=== PATIENT | male | born 1935 | race Caucasian/White ===

== ENCOUNTER 2016-11-12 02:39 | Emergency (ER) | payer MEDICARE, BC ==
--- NOTE | 2016-11-12 03:30 | ED.PDOC ---
History of Present Illness - General Chief Complaint: Dental/Mouth Stated Complaint: Tooth pain Time Seen by Provider: 11/12/16 03:24 Source: patient, RN notes reviewed, Vital Signs reviewed Exam Limitations: no limitations - History of Present Illness Initial Comments: This 80 y/o male has had tooth pain for the past 4 days. The pain initially was just irritating, however, it has become very painful, even to touch. He saw the dentist a couple of months ago and didn't have any problems at the time. The pain radiates up toward his ear. Timing/Duration: other - 4 days Severity: severe Improving Factors: nothing Worsening Factors: eating, other - touch Associated Symptoms: denies symptoms Allergies/Adverse Reactions: Allergies Iodine Allergy (Verified 08/07/16 19:29) Hydrocodone [From Codone] Adverse Reaction (Verified 08/07/16 19:29) Penicillin G Adverse Reaction (Verified 08/07/16 19:29) Home Medications: Ambulatory Orders Pantoprazole Sodium [Protonix] 40 mg PO DAILY 08/07/16 Clindamycin HCl 300 mg PO TID #21 cap 11/12/16 Gabapentin 300 mg PO TID PRN #15 cap 11/12/16 Review of Systems - Review of Systems Constitutional: States: no symptoms reported EENTM: States: other - tooth pain Respiratory: States: no symptoms reported Cardiology: States: no symptoms reported Gastrointestinal/Abdominal: States: no symptoms reported Genitourinary: States: no symptoms reported Musculoskeletal: States: no symptoms reported Skin: States: no symptoms reported Neurological: States: no symptoms reported Endocrine: States: no symptoms reported Hematologic/Lymphatic: States: no symptoms reported Past Medical History (General) - Patient Medical History Hx Seizures: No Hx Stroke: No Hx Dementia: No Hx Asthma: No Hx of COPD: No Hx Cardiac Disorders: No Hx Congestive Heart Failure: No Hx Pacemaker: No Hx Hypertension: No Hx Thyroid Disease: No Hx Diabetes: No Hx Gastroesophageal Reflux: Yes Hx Renal Disease: No Hx Cancer: No Hx of HIV: No Hx Hepatitis C: No Hx MRSA: No - Vaccination History Hx Tetanus, Diphtheria Vaccination: No Hx Influenza Vaccination: Yes Hx Pneumococcal Vaccination: Yes - Social History Hx Tobacco Use: No Hx Chewing Tobacco Use: No Hx Alcohol Use: Yes Hx Substance Use: No Hx Substance Use Treatment: No Hx Depression: No Hx Physical Abuse: No Hx Emotional Abuse: No Hx Suspected Abuse: No Family Medical History - Family History Mother Family History: Unknown Physical Exam - Physical Exam General Appearance: Alert, Other - Mild distress Eye Exam: bilateral normal Ears, Nose, Throat: normal ENT inspection, other - Tenderness to palpation of tooth #30. No caries noted. No gingival erythema. Neck: non-tender Respiratory: lungs clear, normal breath sounds, no respiratory distress, no accessory muscle use Cardiovascular/Chest: regular rate, rhythm, no edema, no gallop, no murmur Gastrointestinal/Abdominal: normal bowel sounds, non tender, soft, no organomegaly Extremity: normal range of motion Skin Exam: normal color, warm/dry Departure - Departure Clinical Impression: Acute pulpitis Time of Disposition: 03:34 Disposition: Discharge to Home or Self Care Condition: Excellent Departure Forms: ED Discharge - Pt. Copy, Patient Portal Self Enrollment Prescriptions: Clindamycin HCl 300 mg PO TID #21 cap Gabapentin 300 mg PO TID PRN #15 cap PRN Reason: Pain Home Medications: Ambulatory Orders Pantoprazole Sodium [Protonix] 40 mg PO DAILY 08/07/16 Clindamycin HCl 300 mg PO TID #21 cap 11/12/16 Gabapentin 300 mg PO TID PRN #15 cap 11/12/16 Additional Instructions: Follow up with dentist SHAKA.
[2016-11-12 03:39] VITALS: TEMP 97.6; O2SAT 96
[2016-11-12] MEDS ORDERED: CLINDAMYCIN HCL CAP 150 MG CAP PO ONE (03:40)
[2016-11-12] MEDS ORDERED: GABAPENTIN 300 MG CAP PO ONE (03:41)
[2016-11-12 03:53] VITALS: BP 178/90
== END 2016-11-12 03:53 | disposition home or self-care (01) ==
LOC: ER 02:39
DX: K04.01 Reversible pulpitis (principal); K21.9 Gastro-esophageal reflux disease without esophagitis; Z88.0 Allergy status to penicillin; Z88.6 Allergy status to analgesic agent; Z88.8 Allergy status to other drugs, medicaments and biological substances

== ENCOUNTER → 2017-06-26 | Outpatient (CLI) | payer MEDICARE, BC ==
--- NOTE | 2017-06-26 09:49 | RAD ---
EXAM DESCRIPTION: Hip Bilateral (accession [id number]), Pelvis (accession [id number]) CLINICAL HISTORY: 81 years,Male,HIP PAIN COMPARISON: None FINDINGS: The right and left hip demonstrates no fractures, dislocations, or other bony abnormalities. The joint spaces quite unremarkable for age.. The included pelvis is unremarkable. There is a slight bump at the femoral head neck junctions bilaterally which can lead to femoral acetabular impingement but that usually more of concern in the much younger population. IMPRESSION: Unremarkable pelvis and hips especially for the patient's age. Electronically signed by: Deon Hernández MD 06/26/2017 9:48 AM CDT
--- NOTE | 2017-06-26 09:49 | RAD ---
EXAM DESCRIPTION: Hip Bilateral (accession [id number]), Pelvis (accession [id number]) CLINICAL HISTORY: 81 years,Male,HIP PAIN COMPARISON: None FINDINGS: The right and left hip demonstrates no fractures, dislocations, or other bony abnormalities. The joint spaces quite unremarkable for age.. The included pelvis is unremarkable. There is a slight bump at the femoral head neck junctions bilaterally which can lead to femoral acetabular impingement but that usually more of concern in the much younger population. IMPRESSION: Unremarkable pelvis and hips especially for the patient's age. Electronically signed by: Deon Hernández MD 06/26/2017 9:48 AM CDT
== END | disposition home or self-care (01) ==
LOC: RAD 07:26
PROVIDERS: ATTEND Orthopaedic Surgery
DX: M25.551 Pain in right hip (principal); M25.552 Pain in left hip

== ENCOUNTER → 2017-08-13 | Outpatient (CLI) | payer MEDICARE, BC | END | disposition home or self-care (01) | LOC: GMAH 16:53 | PROVIDERS: ATTEND Family Medicine | DX: M54.5 Low back pain (principal) ==

== ENCOUNTER → 2017-08-19 | Outpatient (CLI) | payer MEDICARE, BC ==
--- NOTE | 2017-08-20 11:00 | MRI ---
EXAM DESCRIPTION: Lumbar Spine w/o Contrast CLINICAL HISTORY: 81 years, Male, RADICULOPATHY bilateral hip pain more in the right COMPARISON: FINDINGS: Sagittal and axial sequences. Bone marrow is normal signal characteristics. Conus terminates at which shall be labeled L2. With this numbering S1 is considered transitional. If any procedures contemplated, please confirm numbering with plain films. Benign-appearing left renal cysts noted. Sagittal sequences show a minimal bulge at L1-2. At L2-3, slight narrowing with bulge and facet degenerative change. Slight left foraminal narrowing. At L3-4 mild bulging disc and facet degenerative change. Possible mild central stenosis. Mild right foraminal narrowing. Mild bulging disc L4-5 with facet degenerative change. Mild central stenosis. L5-S1 small focal central and left-sided disc osteophyte minimally flattens the thecal sac. Facet degenerative change. No significant stenosis. S1-2 within normal limits. Mild sacroiliac degenerative change bilaterally IMPRESSION: 1. Mild bulging disc L3-4 and L4-5 mild central stenosis at both these levels. Mild right foraminal narrowing L3-4. 2. Mild narrowing L2-3 with bulging disc asymmetric to the left with slight foraminal narrowing. Other mild disc changes present as discussed Electronically signed by: Elroy Leon MD 08/20/2017 10:59 AM CDT
== END ==
LOC: MRI 14:05
PROVIDERS: ATTEND Family Medicine
DX: M51.16 Intervertebral disc disorders with radiculopathy, lumbar region (principal)

== ENCOUNTER → 2017-12-25 | Outpatient (CLI) | payer MEDICARE | LOC: GMAH 10:51 | PROVIDERS: ATTEND Family Medicine | DX: E78.2 Mixed hyperlipidemia (principal); I10 Essential (primary) hypertension; Z12.5 Encounter for screening for malignant neoplasm of prostate; Z12.11 Encounter for screening for malignant neoplasm of colon | CPT/HCPCS: 84443; 84550; G0103 ==

== ENCOUNTER → 2018-12-29 | Outpatient (CLI) | payer MEDICARE | LOC: GMAH 10:58 | PROVIDERS: ATTEND Family Medicine | DX: I10 Essential (primary) hypertension (principal); Z12.5 Encounter for screening for malignant neoplasm of prostate | CPT/HCPCS: 84443; 84550; G0103 ==